=== PATIENT | male | born 2000 | race Caucasian/White ===

== ENCOUNTER 2019-09-10 15:44 | Emergency (ER) | payer OTHER ==
[~2019-09-10] VITALS: Ht 177.8 cm; Wt 81.7 kg
[2019-09-10] MEDS ORDERED: NAPROSYN500 MG PO (16:15)
[2019-09-10 17:02] VITALS: BP 126/56
== END 2019-09-10 17:04 | disposition home or self-care (01) ==
LOC: ER 15:44
DX: T23.252A Burn of second degree of left palm, initial encounter (principal); F17.210 Nicotine dependence, cigarettes, uncomplicated; X08.8XXA Exposure to other specified smoke, fire and flames, initial encounter; Y93.89 Activity, other specified; Y92.098 Other place in other non-institutional residence as the place of occurrence of the external cause; Y99.8 Other external cause status